=== PATIENT | male | born 1955 | race Caucasian/White ===

== ENCOUNTER 2019-10-23 15:01 | Inpatient (IN) | payer BC, SELFPAY ==
[2019-10-23] VITALS (15 sets, daily range): BP systolic 135–190; BP diastolic 81–116; PULSE 71–95; RESP 18–20; TEMP 36.2–36.6; O2SAT 95–99; BMI 36.5
--- NOTE | ~2019-10-23 | CT_ITS ---
EXAMINATION: CT abdomen pelvis wo/w con DATE: 10/23/2019 16:57 INDICATION: Hematuria with 3 days of passing clots and urinary retention. TECHNIQUE: Computed tomography (CT) of the abdomen and pelvis was performed without intravenous contr ast. CT of the abdomen and pelvis was then performed with a total of 130 mL Omnipaque-350 intravenous contrast using a double-bolus technique for simultaneous opacification of the renal parenchyma and r enal collecting system. Maximum intensity projection images of the collecting system were created fro m the volumetric source images by the technologist at a separate workstation. A single view of the ab domen was obtained on 2 radiographs. Automated exposure control and iterative reconstruction techniqu e were employed. The dose-length product was 2434.48 mGy-cm. COMPARISON: None FINDINGS: Tiny calcified nodules in the right lower lobe consistent with old granulomatous disease. Heart size is normal. No pericardial or pleural effusion. Diffuse hepatic steatosis which involves primarily the right hepatic lobe. Gallbladder, spleen, pancreas and bilateral adrenal glands are normal. Moderate diverticulosis with sigmoid colon predominance but without surrounding inflammatory change to suggest diverticulitis. Small bowel and appendix are normal. Bilateral small fat-containing inguinal hernias . No free intraperitoneal gas or fluid. No pathologically enlarged abdominal or pelvic lymphadenopath y. There are few scattered small sclerotic bone islands. Mild scattered degenerative skeletal changes in the spine and bilateral hips. Bilateral kidneys are normal with symmetric enhancement, no urolithiasis or hydronephrosis. The bilat eral renal collecting systems and ureters are opacified in their entirety demonstrating no filling de fects or urothelial irregularities. Contrast is seen within the bladder surrounding a De Jesus catheter as well as a 5.6 x 3.9 x 4.2 cm ovoid high attenuation nonenhancing clot. Prostatomegaly measuring 5. 6 x 4.5 x 5.3 cm. No evident etiology for the clot within the bladder. IMPRESSION: 1. 5.6 x 3.9 x 4.2 cm ovoid nonenhancing clot within the bladder. No urolithiasis, renal parenchymal lesions or urothelial irregularities in the collecting systems, ureters or bladder to suggest etiolog y. 2. Hepatic steatosis. 3. Diverticulosis. 4. Bilateral fat-containing inguinal hernias. Reviewed, dictated and finalized at location A. [employer] REPRESENTATIVE IMPRESSION: 1. 5.6 x 3.9 x 4.2 cm ovoid nonenhancing clot within the bladder. No urolithias is, renal parenchymal lesions or urothelial irregularities in the collecting sy stems, ureters or bladder to suggest etiology. 2. Hepatic steatosis. 3. Diverticulosis. 4. Bilateral fat-containing inguinal hernias.
--- NOTE | ~2019-10-23 | US_ITS ---
EXAMINATION: US retroperitoneal comp EXAM DATE: 10/24/2019 09:57 INDICATION: Gross hematuria. Evaluate for blood clots. TECHNIQUE: Multiple grayscale and Doppler images of the kidneys were obtained (by a technologist who performed the scan) and subsequently reviewed. Correlation is made to CT abdomen pelvis from 10/23/2019 . FINDINGS: Right kidney: There is normal contour and echogenicity. It measures 11.3 x 5.7 x 5.9 centimeters. T here are no focal renal lesions identified. There is no hydronephrosis. Left kidney: There is normal contour and echogenicity. It measures 11.3 x 5.8 x 6.2 centimeters. Th ere are no focal renal lesions identified. There is no hydronephrosis. The bladder is collapsed with De Jesus catheter in position. There is mild prostatomegaly, prostate kolton uring about 5 cm. IMPRESSION: 1. Sonographically unremarkable kidneys. 2. De Jesus within collapsed bladder. 3. Mild prostatomegaly. Reviewed, dictated and finalized at location A. [employer]UCATION TEACHER
--- NOTE | 2019-10-23 15:31 | ED.MALEGU ---
HPI - Male Genitourinary General Chief complaint: Urogenital-Male Stated complaint: unable to urinate Time Seen by Provider: 10/23/19 15:12 Source: patient and RN notes reviewed Mode of arrival: ambulatory Limitations: no limitations History of Present Illness HPI Narrative: Pt is a 63 y/o male who presents to the ED with c/o hematuria which began 3 days ago. Pt states he started to experience hematuria on 10/20/2019, but was able to urinate still. On 10/21/2019 the pt went to his urologist, Dr. Hernandes, where he had blood work ordered. Dr. Hernandes scheduled the pt for a CT scan and cystoscopy on 11/25/2019. However, the pt states his symptoms have worsened since the appointment where he is unable to urinate, and when he does, there is only blood present, and no urine. Pt reports back pain and bladder pain, but denies a fever, nausea, or vomiting. MD Complaint: other (hematuria) Onset (ago): day(s) (3 days ago) Duration: constant Location: abdomen (bladder) Relieving factors: none Associated symptoms: Reports urinary retention and other (back pain; bladder pain) Related Data Allergies Allergy/AdvReac Type Severity Reaction Status Date / Time No Known Allergies Allergy Unknown Verified 10/23/19 15:18 Review of Systems Review of Systems: All systems reviewed & are unremarkable except as noted in HPI and below Constitutional: Constitutional: Denies fever(s) Gastrointestinal: Gastrointestinal: Denies nausea, Denies vomiting and Reports other (bladder pain) Genitourinary: Genitourinary: Reports hematuria and Reports other (urinary retention) Musculoskeletal: Musculoskeletal: Reports back pain PMFSH Past Medical History Medical History (Updated 10/23/19 @ 17:34 by Jazz King MD) BPH (benign prostatic hyperplasia) Surgical History Surgical History (Updated 10/23/19 @ 15:43 by Nickie Felder) H/O transurethral resection of prostate H/O umbilical hernia repair Social History Social History (Updated 10/23/19 @ 15:43 by Nickie Felder) Smoking status: Never smoker Gender identity (if verbalized by the patient): Male Comments PCP: Dr. Ramirez Urologist: Dr. Hernandes Exam Const: General: cooperative, no acute distress and alert Nutritional Appearance: well nourished Orientation/consciousness: patient oriented x3 Limitations: no limitations HENMT: Mouth: Yes lip normal and Yes moist mucous membranes Resp: Effort & Inspection: normal respiratory effort Auscultation: clear to auscultation bilaterally Cardio: Rate: regular rate Rhythm: regular rhythm GI: GI Palp: Yes Soft to palpation Auscultation: normal bowel sounds : General: Yes other (bladder is distended and tender) Skin: General skin exam: normal color Neuro: General: patient oriented x3 Cognition (Neuro): normal cognition Speech: normal speech Extrem: General: normal to inspection, full ROM and no clubbing, cyanosis or edema Psych: Mental Status: mental status grossly normal Affect: normal affect Attitude: cooperative Course Consultations Consultation #1: Discussed case with OR nurse to Dr. Hernandes. States Dr. Hernandes is currently in a procedure. Requested the pt to have a CT urogram scan. Dr. Hernandes will check in with the pt after the tests are back and he is out of the OR. Date: 10/23/19 Time: 15:49 Consultation #2: Dr. Hernandes in the emergency department reviewing CT and evaluating patient. Advised the patient will need to be admitted for CBI. Date: 10/23/19 Time: 16:58 Vital Signs Vital signs: Vital Signs Temperature 97.8 F 10/23/19 15:07 Pulse Rate 77 10/23/19 15:07 Respiratory Rate 18 10/23/19 15:07 Blood Pressure 181/94 H 10/23/19 15:07 Pulse Oximetry 99 10/23/19 15:07 Temperature 97.8 F 10/23/19 15:07 Pulse Rate 95 10/23/19 15:19 Respiratory Rate 18 10/23/19 15:19 Blood Pressure 190/116 H 10/23/19 15:19 Pulse Oximetry 99 10/23/19 15:19 MDM - Male G
[2019-10-23 15:57] LABS: Basophils Absolute Auto 0.1 K/mm3 (0.0-0.1); Eosinophils Absolute Auto 0.2 K/mm3 (0-0.3); Eosinophils Percent Auto 2.4 % (0-4.4); Hematocrit 43.9 % (42.0-52.0); Hemoglobin 14.9 g/dL (14.0-18.0); Immature Granulocyte Absolute 0.02 K/mm3 (0.00-0.031); Immature Granulocyte Percent A 0.3 % (0-0.5); Lymphocytes Absolute Auto 1.69 K/mm3 (0.9-3.2); Lymphocytes Percent Auto 25.3 % (18.3-44.2); Mean Corpuscular HGB Conc 33.9 g/dl (32-36); Mean Corpuscular Hemoglobin 29.9 pg (26-34); Monocytes Absolute Auto 0.5 K/mm3 (0.1-0.6); Monocytes Percent Auto 7.6 % (2.6-8.5); Neutrophils Absolute Auto 4.2 K/mm3 (1.3-6.7); Neutrophils Percent Auto 63.4 % (45.5-73.1); Platelet Count Result 254 k/mm3 (150-375); Red Blood Count 4.99 M/mm3 (4.6-6.20); White Blood Count 6.7 K/mm3 (4.5-10.0)
[2019-10-23 16:08] LABS: Alanine Aminotransferase 21 U/L (4-50); Albumin Level 4.5 g/dL (3.5-5.1); Alkaline Phosphatase 63 U/L (38-126); Aspartate Amino Transferase 23 U/L (17-59); Bilirubin,Total 0.5 mg/dL (0.2-1.3); Blood Urea Nitrogen 13 mg/dL (9-20); Calcium 9.5 mg/dL (8.4-10.2); Carbon Dioxide 26 mmol/L (22-30); Chloride 103 mmol/L (98-107); Estimated CRCL calculation 107 ml/min; Estimated Glomerular Filt Rate > 60; Glucose 99 mg/dL (75-110); Potassium 3.9 mmol/L (3.4-5.0); Sodium 139 mmol/L (137-145)
[2019-10-23] MEDS: LIDOCAINE HCL 2% GEL UROJET 10 ML PKG (16:28)
[2019-10-23 17:18] LABS: Add Urine Microscopic? YES; Appearance Urine Clear (Clear); Bilirubin Urine Negative (Negative); Blood Urine 3+ (Negative); Color Urine Red (Yellow); Glucose Urine UA 1+ mg/dL (Negative); Ketones Urine Negative (Negative); Leukocyte Esterase Ur Negative LEU/UL (Negative); Nitrate Urine Negative (Negative); Protein Urine 3+ mg/dL (Negative); RBC Urine >75 /hpf (0-2); Specific Grav Ur 1.014 (1.001-1.035); Urobilinogen Urine Negative mg/dL (<2.0); WBC Urine 0-3 /hpf
--- NOTE | 2019-10-23 21:43 | ADMGEN ---
This patient, John Martin, was admitted to Medical Room 250-01. Patient/family oriented to hospital policies and general routines including ID bracelet, bed and alarms, visiting hours, pain management, procedures, bathroom and other care routines, personal items, smoking policy, room service/diet, and visiting hours. Valuables list has been completed. Information on how to activate the Rapid Response Team has been discussed. Patient/Family are encouraged to report perceived risks to care and to ask questions if they do not understand what they are told or what they should do.
[2019-10-24] VITALS (13 sets, daily range): BP systolic 104–143; BP diastolic 67–81; PULSE 60–86; RESP 12–20; TEMP 36.1–36.8; O2SAT 93–100
[2019-10-24] MEDS: OXYBUTYNIN CHLORIDE 5 MG TABLET PO ×2 (00:04→19:02)
--- NOTE | 2019-10-24 00:16 | CONS_ITS ---
DATE OF CONSULTATION: 10/23/2019 Physician requesting consultation is the Emergency Department. HISTORY OF PRESENT ILLNESS: The patient is a very pleasant gentleman with history of previous TURP who I saw in the office 3 days ago with acute gross hematuria that has since resolved. The patient had a urine culture that was negative. His urine cytology is pending. The patient states that his hematuria worsened today and he was unable to void and presented to the emergency department. A 3-way De Jesus catheter was inserted with return of approximately 1000 mL of urine and started on CBI that would not clear. The patient was sent for CT urogram. I was called up for consultation. PAST MEDICAL HISTORY: 1. History of previous TURP. 2. History of previous umbilical hernia repair. SOCIAL HISTORY: He is a nonsmoker. ALLERGIES: NONE. REVIEW OF SYSTEMS: Negative as mentioned in the HPI. PHYSICAL EXAMINATION: GENERAL: The patient is awake, alert, in no acute distress. VITAL SIGNS: Afebrile. He is hypertensive at 180/90, his respiratory rate is 18, his pulse is 77. RESPIRATORY: Unlabored. ABDOMEN: Soft, nontender, nondistended. EXTREMITIES: Showed no edema. GENITOURINARY: The patient has a 3-way catheter in place. He is draining red urine. PROCEDURE: I disconnected the 3-way catheter, I irrigated, was able to remove approximately 200 cc of clot. In the CBI, they remained clear. He was return to low flow continuous bladder irrigation. LABORATORY DATA: White blood cell count of 6, hematocrit is 43, platelets are 254. BMP was within normal limits. Urinalysis is pending. CT scan: I reviewed the images. There is another report available at this time. The patient does have what appears to be normal upper tracts. He does have approximately 5 cm clot in his bladder (was prior to irrigation at the bedside). ASSESSMENT: The patient is a very pleasant 63-year-old gentleman. He presented to the emergency room department with clot retention. The patient is now on continuous irrigation with clear urine. PLAN: 1. Await final Radiology interpretation of CT scan. 2. Continue bladder irrigation. 3. Plan for bladder ultrasound in the morning to assess for residual clots. I will plan cystoscopy during hospitalization to assess etiology of hematuria. CAROLINE THOMAS M.D. JEWEL BEARING DRILLER JEWEL BEARING DRILLER D I MT: Ziggy BEE
--- NOTE | 2019-10-24 08:56 | WPDUROPN2 ---
Progress Note: A&P Assessment and Plan (1) Gross hematuria: Code(s): R31.0 - Gross hematuria Status: Acute Assessment and Plan: CT with normal upper tracts Plan on cysto with clot evacuation and evaluation of bladder today. Subjective Subjective Date/Time Seen: 10/24/19 08:56 Principal diagnosis: Gross hematuria Interval history: Currenty on CBI with fairly clear urine. CT with 5 cm clot some of which was irrigated out by Dr Hernandes. Review of Systems Review of Systems: All systems reviewed & are unremarkable except as noted in HPI and below Exam Const: General: no acute distress HENMT: General nose exam: Normal nares present Eyes: General: appearance normal, both eyes and all related structures Resp: Effort & Inspection: normal respiratory effort Cardio: Rate: regular rate Urinary Catheter: Urinary Catheter: patent and draining Skin: General skin exam: normal color Objective Data Vital Signs Vital Signs: Vital Signs - 24 hr 10/23/19 15:07 10/23/19 15:15 10/23/19 15:16 Temperature 36.6 C Pulse Rate 77 Respiratory Rate 18 Blood Pressure 181/94 H 190/116 H Pulse Oximetry 99 98 99 10/23/19 15:19 10/23/19 17:29 10/23/19 17:30 Temperature Pulse Rate 95 Respiratory Rate 18 Blood Pressure 190/116 H Pulse Oximetry 99 97 95 10/23/19 17:31 10/23/19 17:45 10/23/19 18:00 Temperature Pulse Rate Respiratory Rate Blood Pressure 147/81 H Pulse Oximetry 97 98 95 10/23/19 18:01 10/23/19 18:15 10/23/19 18:30 Temperature Pulse Rate Respiratory Rate Blood Pressure 137/88 Pulse Oximetry 95 96 97 10/23/19 18:31 10/23/19 18:45 10/23/19 22:00 Temperature 36.2 C L Pulse Rate 71 Respiratory Rate 20 Blood Pressure 135/84 153/83 H Pulse Oximetry 97 97 95 10/24/19 05:55 Temperature 36.4 C Pulse Rate 65 Respiratory Rate 20 Blood Pressure 137/81 Pulse Oximetry 95 Meds/Results Medications: Active Medications Generic Name Dose Route Start Last Admin Trade Name Freq PRN Reason Stop Dose Admin Oxybutynin Chloride 5 mg 10/23/19 22:57 10/24/19 00:04 Ditropan PO 5 mg TID PRN Administration Bladder spasms Radiology Results: ITS Impressions Abdomen/Pelvis CT 10/23/19 17:04 IMPRESSION: 1. 5.6 x 3.9 x 4.2 cm ovoid nonenhancing clot within the bladder. No urolithiasis, renal parenchymal lesions or urothelial irregularities in the collecting systems, ureters or bladder to suggest etiology. 2. Hepatic steatosis. 3. Diverticulosis. 4. Bilateral fat-containing inguinal hernias. Labs Labs: Laboratory Results - last 24 hr 10/23/19 10/23/19 10/23/19 15:44 15:44 16:26 WBC 6.7 RBC 4.99 Hgb 14.9 Hct 43.9 MCV 88.0 MCH 29.9 MCHC 33.9 RDW 12.0 Plt Count 254 MPV 9.0 Immature Gran % (Auto) 0.3 Neut % (Auto) 63.4 Lymph % (Auto) 25.3 [place] % (Auto) 7.6 Eos % (Auto) 2.4 Baso % (Auto) 1.0 Lymph # (Auto) 1.69 [place] # (Auto) 0.5 Eos # (Auto) 0.2 Baso # (Auto) 0.1 Abs Immat Gran (auto) 0.02 Absolute Neuts (auto) 4.2 Absolute Nucleated RBC 0.0 Nucleated RBC % 0.0 Sodium 139 Potassium 3.9 Chloride 103 Carbon Dioxide 26 BUN 13 Creatinine 0.80 Estim Creat Clear Calc 107 Estimated GFR > 60 Glucose 99 Calcium 9.5 Total Bilirubin 0.5 AST 23 ALT 21 Alkaline Phosphatase 63 Total Protein 8.0 Albumin 4.5 Urine Color Red H Urine Appearance Clear Urine pH 7.0 Ur Specific [place] 1.014 Urine Protein 3+ H Urine Glucose (UA) 1+ H Urine Ketones Negative Ur Blood (Man) 3+ H Urine Nitrate Negative Urine Bilirubin Negative Urine Urobilinogen Negative Leukocyte Esterase Rfl Negative Urine RBC >75 H Urine WBC 0-3
--- NOTE | 2019-10-24 10:06 | PC.NURSE ---
Patient to ultrasound. OR is going to get patient after ultrasound and take to preop.
[2019-10-24] MEDS: LACTATED RINGERS 1,000 ML 30 ML IV CONT (10:43)
--- NOTE | 2019-10-24 10:46 | WPDANESEPPF ---
Anes - Initial Pre Proc Eval Procedure: Operation Date: 10/24/19 11:00 Proposed Procedures p Cystoscopy, Evacuation Bladder Clots - Memo Hernandez MD Date/Time: 10/24/19 10:46 Surgeon: Rad Hernandes MD Pre Op Diagnosis: Gross hematuria Patient Data Age: 63 Gender: M Height: 5 ft 10 in Weight: 115.5 kg Last Vital Signs Temp 98.2 F 10/24/19 10:15 Pulse 69 10/24/19 10:15 Resp 16 10/24/19 10:15 BP 136/78 10/24/19 10:15 Pulse Ox 95 10/24/19 10:15 Allergies Allergy/AdvReac Type Severity Reaction Status Date / Time No Known Allergies Allergy Unknown Verified 10/24/19 10:17 Home Medications Medication Instructions Recorded Confirmed Type tadalafil [Cialis] 20 mg PO DAILY PRN 10/23/19 10/23/19 History Laboratory Tests 10/23/19 10/23/19 10/23/19 15:44 15:44 16:26 WBC 6.7 K/mm3 K/mm3 (4.5-10.0) RBC 4.99 M/mm3 M/mm3 (4.6-6.20) Hgb 14.9 g/dL g/dL (14.0-18.0) Hct 43.9 % % (42.0-52.0) MCV 88.0 fl fl (80-100) MCH 29.9 pg pg (26-34) MCHC 33.9 g/dl g/dl (32-36) RDW 12.0 % % (11.5-14.5) Plt Count 254 k/mm3 k/mm3 (150-375) MPV 9.0 fl fl (7.4-10.4) Immature Gran % (Auto) 0.3 % % (0-0.5) Neut % (Auto) 63.4 % % (45.5-73.1) Lymph % (Auto) 25.3 % % (18.3-44.2) Jack % (Auto) 7.6 % % (2.6-8.5) Eos % (Auto) 2.4 % % (0-4.4) Baso % (Auto) 1.0 % % (0.2-1.2) Lymph # (Auto) 1.69 K/mm3 K/mm3 (0.9-3.2) Jack # (Auto) 0.5 K/mm3 K/mm3 (0.1-0.6) Eos # (Auto) 0.2 K/mm3 K/mm3 (0-0.3) Baso # (Auto) 0.1 K/mm3 K/mm3 (0.0-0.1) Abs Immat Gran (auto) 0.02 K/mm3 K/mm3 (0.00-0.031) Absolute Neuts (auto) 4.2 K/mm3 K/mm3 (1.3-6.7) Absolute Nucleated RBC 0.0 K/mm3 K/mm3 (0.0-0.012) Nucleated RBC % 0.0 % % (0.0-0.2) Sodium 139 mmol/L mmol/L (137-145) Potassium 3.9 mmol/L mmol/L (3.4-5.0) Chloride 103 mmol/L mmol/L (98-107) Carbon Dioxide 26 mmol/L mmol/L (22-30) BUN 13 mg/dL mg/dL (9-20) Creatinine 0.80 mg/dL mg/dL (0.7-1.3) Estim Creat Clear Calc 107 ml/min ml/min Estimated GFR > 60 (59 - ) Glucose 99 mg/dL mg/dL (75-110) Calcium 9.5 mg/dL mg/dL (8.4-10.2) Total Bilirubin 0.5 mg/dL mg/dL (0.2-1.3) AST 23 U/L U/L (17-59) ALT 21 U/L U/L (4-50) Alkaline Phosphatase 63 U/L U/L (38-126) Total Protein 8.0 g/dL g/dL (6.3-8.2) Albumin 4.5 g/dL g/dL (3.5-5.1) Urine Color Red H (Yellow) Urine Appearance Clear (Clear) Urine pH 7.0 (5.0-9.0) Ur Specific [place] 1.014 (1.001-1.035) Urine Protein 3+ mg/dL H mg/dL (Negative) Urine Glucose (UA) 1+ mg/dL H mg/dL (Negative) Urine Ketones Negative mg/dL mg/dL (Negative) Ur Blood (Man) 3+ H (Negative) Urine Nitrate Negative (Negative) Urine Bilirubin Negative (Negative) Urine Urobilinogen Negative mg/dL mg/dL (<2.0) Leukocyte Esterase Rfl Negative ELI/UL ELI/UL (Negative) Urine RBC >75 /hpf H /hpf (0-2) Urine WBC 0-3 /hpf /hpf Patient hx anesthesia problems: none Family hx anesthesia problems: none [facility] Past Medical History Medical History (Updated 10/24/19 @ 10:39 by Dean Higginbotham MD) BPH (benign prostatic hyperplasia) MELBA (obstructive sleep apnea) Surgical History Surgical History (Updated 10/23/19 @ 15:43 by Nickie Felder) H/O transurethral resection of prostate H/O umbilical hernia repair Family History Family History (Updated 10/23/19 @ 20:02 by Alondra Nugent RN) Mother Breast cancer Sibling Kidney c
--- NOTE | 2019-10-24 11:44 | PM.PROC ---
Procedure Note - Detailed Date of procedure: 10/24/19 Pre-op diagnosis: Gross hematuria Post-op diagnosis: same Procedure performed: Cystoscopy with fulguration Description of procedure: Patient was taken to the operative suite and correctly identified. Once general anesthesia was obtained he was placed in the dorsal lithotomy position prepped and draped in usual sterile fashion. Prior De Jesus catheter had been removed. Twenty-two Pashto scope was inserted the bladder in direct vision. He has some residual prostatic tissue at the apical region. Otherwise the prostatic fossa more proximally is open. It is somewhat edematous in appearance. There is some mild oozing from the prostatic fossa. The bladder itself is then inspected. There is no residual clot noted. He has some typical De Jesus edema present. At this point time we retracted the scope in fulgurated any little oozing vessels in the prostatic fossa. An [address] was then placed and inflated with 15 cc of sterile saline. We then went ahead and connected to continuous bladder irrigation. 2% viscous lidocaine had been placed in the urethra. He is taken to recovery room stable condition. Will wean CBI to off. If he remains clear most likely discharge home and morning with a voiding trial. Anesthesia: GLMA Surgeon: Memo Hernandez MD Drains: Yes Packing: No Pathology: none sent Complications: No immediate complications Condition: stable Disposition: PACU
[2019-10-24] MEDS: LIDOCAINE HCL 2% GEL UROJET 10 ML PKG MUCOUS MEM (11:46)
--- NOTE | 2019-10-24 13:03 | PC.NURSE ---
Patient return from OR.
--- NOTE | 2019-10-24 18:08 | PC.NURSE ---
On 10/24/19, the student, Sheila Carter, provided care and completed [facility] documentation on this patient. I have reviewed the student's documentation and agree with the findings.
[2019-10-25 05:53] VITALS: BP 133/70; PULSE 58; RESP 20; TEMP 36.7; O2SAT 98
--- NOTE | 2019-10-25 08:51 | WPDUROPN2 ---
Progress Note: A&P Assessment and Plan (1) Gross hematuria: Code(s): R31.0 - Gross hematuria Status: Acute Assessment and Plan: - cysto and fulguration of prostatic bleeding 10/24/19 - urine now clear - dispo planning Subjective Subjective Date/Time Seen: 10/25/19 08:51 Review of Systems Review of Systems: All systems reviewed & are unremarkable except as noted in HPI and below Exam Const: General: no acute distress Resp: Effort & Inspection: normal respiratory effort GI: Other: soft, nontender Objective Data Vital Signs Vital Signs: Vital Signs - 24 hr 10/24/19 10:15 10/24/19 11:51 10/24/19 12:05 Temperature 36.8 C 36.6 C Pulse Rate 69 61 63 Respiratory Rate 16 12 12 Blood Pressure 136/78 104/67 117/72 Pulse Oximetry 95 100 100 10/24/19 12:20 10/24/19 12:35 10/24/19 12:45 Temperature Pulse Rate 64 68 64 Respiratory Rate 18 14 14 Blood Pressure 122/73 119/73 122/79 Pulse Oximetry 96 96 93 10/24/19 13:10 10/24/19 13:25 10/24/19 14:00 Temperature 36.2 C L 36.2 C L 36.1 C L Pulse Rate 60 67 60 Respiratory Rate 16 16 16 Blood Pressure 143/75 H 130/76 133/78 Pulse Oximetry 96 94 93 10/24/19 14:55 10/24/19 21:59 10/24/19 22:30 Temperature 36.1 C L 36.6 C Pulse Rate 66 86 86 Respiratory Rate 16 20 Blood Pressure 126/75 124/67 Pulse Oximetry 95 97 97 10/25/19 05:53 Temperature 36.7 C Pulse Rate 58 L Respiratory Rate 20 Blood Pressure 133/70 Pulse Oximetry 98 Intake/Output Intake/Output: Intake & Output 10/22/19 10/23/19 10/24/19 10/25/19 23:59 23:59 23:59 23:59 Intake Total 2320 550 Output Total 5100 1500 Balance -6312 -249 Meds/Results Medications: Active Medications Generic Name Dose Route Start Last Admin Trade Name Freq PRN Reason Stop Dose Admin Oxybutynin Chloride 5 mg 10/23/19 22:57 10/24/19 19:02 Ditropan PO 5 mg TID PRN Administration Bladder spasms Radiology Results: ITS Impressions Abdomen/Pelvis CT 10/23/19 17:04 IMPRESSION: 1. 5.6 x 3.9 x 4.2 cm ovoid nonenhancing clot within the bladder. No urolithiasis, renal parenchymal lesions or urothelial irregularities in the collecting systems, ureters or bladder to suggest etiology. 2. Hepatic steatosis. 3. Diverticulosis. 4. Bilateral fat-containing inguinal hernias. Retroperitoneum Ultrasound 10/24/19 09:57 IMPRESSION: 1. Sonographically unremarkable kidneys. 2. De Jesus within collapsed bladder. 3. Mild prostatomegaly.
--- NOTE | 2019-11-06 16:34 | PM.DS ---
DS: Diagnosis Admitting Diagnosis Admitting Diagnosis: Gross hematuria DS: Summary Time Spent with Patient Time attestation: Pt admitted with gross hematuria. Found to have clot in the bladder & removal at bedside in ER. HD #2 underwent cysto and fulguration of prostatic bleeding 2. Urine then cleared and pt sent home on POD #1. Exam Const: General: no acute distress Cardio: Rate: regular rate GI: GI Palp: Yes Soft to palpation Discharge Plan Discharge Attending physician on discharge: Rad Hernandes Consulting providers: Memo Hernandez ; Geoff Guevara ; Naren Finley Discharging Clinician: Rad Hernandes Patient Disposition: Home, Self-Care Activity: may shower and as tolerated Diet: as tolerated Patient Instructions: Hematuria (GEN) Stand Alone Forms: General Discharge Information Follow-up/Referrals: Rad Hernandes MD [Physician] - Discharge Medications: Continued tadalafil [Cialis] 20 mg tablet 20 mg PO DAILY PRN (Reason: Erectile Dysfunction) RF: 0 Date of admission: 10/24/19 10:16 Primary Care Provider: AshleyYadira Admitting Provider: Rad Hernandes Discharge Date/Time: 10/25/19 10:25 Attending physician on admission: Rad Hernandes Condition: Stable
== END 2019-10-25 10:25 | disposition home or self-care (01) | DRG 718 ==
LOC: ANHED 15:17 → ANH2MED 17:21
PROVIDERS: Urology; Admitting Provider Urology; Emergency Provider Emergency Medicine; PCP Family Medicine; Visit Provider Urology
PROC: 0TCB8ZZ Extirpation of Matter from Bladder, Via Natural or Artificial Opening Endoscopic (ICD-10-PCS; CPT 52001; principal; 2019-10-24 11:00)
DX: N42.1 Congestion and hemorrhage of prostate (principal); R33.9 Retention of urine, unspecified
CPT/HCPCS: 36415; 74178; 76770; 80053; 81001; 85025; 96360; 99285; A9270; G0378; J0131; J1100; J2250; J2405; J2704; J3010; J7120; Q9967

== ENCOUNTER 2023-09-01 02:36 | Day surgery (SDC) | payer BC, SELFPAY ==
[2023-08-17 11:03] VITALS: BMI 33.5
--- NOTE | 2023-08-30 09:19 | SUR.PREOP ---
Patient called regarding upcoming procedure. Message left on patient's voicemail regarding appointment times.
--- NOTE | 2023-08-31 16:17 | PM.HPGS ---
History of Present Illness History of Present Illness Consent: Risks, benefits, and alternatives have been discussed and questions answered. Patient agrees to proceed with procedure. Chief complaint: family hx colon polyps Narrative: John Martin is a 67 year old male Referred for colon screening due to family history of polyps. His last colonoscopy was 5 years ago. Review of Systems Review of Systems: All systems reviewed & are unremarkable except as noted in HPI and below PMFSH Past Medical History Medical History (Updated 09/01/23 @ 13:18 by Stephen Bazan MD) BPH (benign prostatic hyperplasia) HTN (hypertension) Obesity MELBA (obstructive sleep apnea) Surgical History Surgical History H/O transurethral resection of prostate H/O umbilical hernia repair Family History Family History Mother Breast cancer Sibling Kidney carcinoma Malignant neoplasm of prostate Sibling Malignant neoplasm of prostate Kidney carcinoma Lung cancer Social History Social History Smoking status: Never smoker Alcohol intake: current Drinks per week: 5 Substance use: never Substance use type: does not use Living arrangements: with family Gender identity (if verbalized by the patient): Male Spiritual care concerns: No Agree to blood products: Yes Meds Home Medications and Allergies Home Medications Medication Instructions Recorded Confirmed Type tadalafil 20 mg tablet (Cialis) 20 mg PO DAILY PRN Erectile 10/23/19 08/17/23 History Dysfunction lisinopril 20 1 tablet PO DAILY 08/17/23 08/17/23 History mg-hydrochlorothiazide 12.5 mg tablet Allergies Allergy/AdvReac Type Severity Reaction Status Date / Time No Known Allergies Allergy Unknown Verified 09/01/23 13:16 Exam Resp: Auscultation: clear to auscultation bilaterally Cardio: Rate: regular rate Rhythm: regular rhythm GI: GI Palp: Yes Soft to palpation and No Tenderness to palpation present (GI) Assessment and Plan Assessment and plan (1) Colon cancer screening: Code(s): Z12.11 - Encounter for screening for malignant neoplasm of colon Status: Acute Assessment and Plan: Colonoscopy with possible biopsy or polypectomy or cautery or injection of substances.
--- NOTE | 2023-09-01 13:18 | P.PNAN_ITS ---
Anes - Initial Pre Proc Eval Procedure: Operation Date: 09/01/23 14:30 Proposed Procedures p Colonoscopy - Jaime Richards MD Date/Time: 09/01/23 13:18 Surgeon: Jaime Richards MD Pre Op Diagnosis: family hx colon polyps Patient Data Age: 67 Gender: M Height: 1.78 m Weight: 105.9 kg Allergies Allergy/AdvReac Type Severity Reaction Status Date / Time No Known Allergies Allergy Unknown Verified 09/01/23 13:16 Home Medications Medication Instructions Recorded Confirmed Type tadalafil 20 mg tablet (Cialis) 20 mg PO DAILY PRN Erectile 10/23/19 08/17/23 History Dysfunction lisinopril 20 1 tablet PO DAILY 08/17/23 08/17/23 History mg-hydrochlorothiazide 12.5 mg tablet Patient hx anesthesia problems: none Family hx anesthesia problems: none Results Review: All pre-operative results and documents have been reviewed as part of the pre- operative evaluation. [facility] Past Medical History Medical History (Updated 09/01/23 @ 13:18 by Stephen Bazan MD) BPH (benign prostatic hyperplasia) HTN (hypertension) Obesity MELBA (obstructive sleep apnea) Surgical History Surgical History H/O transurethral resection of prostate H/O umbilical hernia repair Family History Family History Mother Breast cancer Sibling Kidney carcinoma Malignant neoplasm of prostate Sibling Malignant neoplasm of prostate Kidney carcinoma Lung cancer Social History Social History Smoking status: Never smoker Alcohol intake: current Drinks per week: 5 Substance use: never Substance use type: does not use Living arrangements: with family Gender identity (if verbalized by the patient): Male Spiritual care concerns: No Agree to blood products: Yes Anes - Eval Final PreProcedure Day of Procedure 09/01/23 13:18 Patient weight: obese Heart: regular rate and rhythm Lungs: clear to auscultation Airway: Mallampati scale class II Neurological: alert and oriented Last oral intake: >/= 8 hours ASA classification: III Emergent: no Anesthetic plan: proceed Anesthesia type and monitoring: general GIVS and standard monitoring Results Review: All pre-operative results and documents have been reviewed as part of the pre- operative evaluation. Informed Consent: The patient's anesthetic plan and its attendant risks and benefits were discussed with the patient/family/POA. Questions were solicited and answers provided to the satisfaction of the patient/family/POA.
[2023-09-01] MEDS: LACTATED RINGERS 1,000 ML 150 ML IV CONT (13:25)
[2023-09-01 13:26] VITALS: BP 129/87; PULSE 89; RESP 18; TEMP 36.1; O2SAT 100
[2023-09-01 13:54] VITALS: BP 102/57; PULSE 79; RESP 14; O2SAT 95
[2023-09-01 14:04] VITALS: BP 111/67; PULSE 76; RESP 17; O2SAT 97
[2023-09-01 14:14] VITALS: BP 114/70; PULSE 72; RESP 20; O2SAT 99
== END 2023-09-01 14:28 | disposition home or self-care (01) ==
PROVIDERS: PCP Internal Medicine; Visit Provider Internal Medicine Gastroenterology
PROC: 0DJD8ZZ Inspection of Lower Intestinal Tract, Via Natural or Artificial Opening Endoscopic (ICD-10-PCS; CPT 45378; principal; 2023-09-01 14:30)
DX: Z12.11 Encounter for screening for malignant neoplasm of colon (principal); K64.8 Other hemorrhoids; K57.30 Diverticulosis of large intestine without perforation or abscess without bleeding; Z83.719 Family history of colon polyps, unspecified; I10 Essential (primary) hypertension; G47.33 Obstructive sleep apnea (adult) (pediatric); N40.0 Benign prostatic hyperplasia without lower urinary tract symptoms; E66.9 Obesity, unspecified; Z68.33 Body mass index [BMI] 33.0-33.9, adult
CPT/HCPCS: 45378; J2704; J7120